=== PATIENT | male | born 1985 | race Caucasian/White ===

== ENCOUNTER 2020-11-29 05:19 | Inpatient (IN) | payer OTHER ==
[2020-11-29 06:25] LABS: BASOPHIL 0.5 % (0-2); EOSINOPHIL 0.9 % (0-5); HCT 36.9 % (42.0-52.0); HGB 11.8 g/dl (13.2-18.0); MCH 26.6 pg (25.0-31.0); MCV 83.3 fL (78.0-100.0); MONOCYTE 9.6 % (0-12); MPV 9.1 fL (6.0-9.5); NEUTROPHIL 78.6 % (41-80); NRBC 0; PLT 340 K/uL (150-400); RBC 4.43 M/uL (4.70-6.00); RDW 13.3 % (11.5-14.0); WBC 13.2 K/uL (4.0-10.5)
[2020-11-29 06:32] LABS: BILIRUBIN NEGATIVE (NEGATIVE); BLOOD NEGATIVE Ery/uL (NEGATIVE); CLARITY CLEAR (CLEAR); COLOR YELLOW (YELLOW); GLUCOSE (U) NORMAL (NORMAL); LEUKOCYTES NEGATIVE Leu/uL (NEGATIVE); NITRITE NEGATIVE (NEGATIVE); PROTEIN NEGATIVE (NEGATIVE); SPECIFIC GRAVITY 1.025 (1.001-1.030); UROBILINOGEN 0.2 mg/dL (0.2-1.0); pH 6.5 (5.0-9.0)
[2020-11-29 07:59] LABS: ALBUMIN 3.3 g/dL (3.4-5.0); BILIRUBIN - TOTAL 0.4 mg/dL (0.2-1.0); CREATININE 0.74 mg/dL (0.67-1.17); GLOBULIN (CALCULATION) 3.7 g/dL; POTASSIUM 4.4 mmol/L (3.5-5.1)
[2020-11-29 08:12] LABS: LACTIC ACID 1.6 mmol/L (0.4-1.9)
[2020-11-29 16:13] LABS: CORONAVIRUS 2019 SARS-COV-2 NEGATIVE (NEGATIVE); INFLUENZA A NAA NEGATIVE (NEGATIVE)
[2020-11-30 06:31] LABS: BASOPHIL 0.1 % (0-2); EOSINOPHIL 0 % (0-5); HCT 33.5 % (42.0-52.0); HGB 10.7 g/dl (13.2-18.0); MCH 26.6 pg (25.0-31.0); MCHC 31.9 g/dL (32.0-36.0); MCV 83.1 fL (78.0-100.0); MONOCYTE 6.4 % (0-12); MPV 9.2 fL (6.0-9.5); NEUTROPHIL 84.9 % (41-80); NRBC 0; PLT 344 K/uL (150-400); RBC 4.03 M/uL (4.70-6.00); RDW 13.4 % (11.5-14.0); WBC 14.1 K/uL (4.0-10.5)
[2020-11-30 06:47] LABS: ALBUMIN 2.6 g/dL (3.4-5.0); BILIRUBIN - TOTAL 0.3 mg/dL (0.2-1.0); BUN/CREAT RATIO (CALC) 24.7 RATIO; CREATININE 0.73 mg/dL (0.67-1.17); GLOBULIN (CALCULATION) 4.3 g/dL; MAGNESIUM 2.4 mg/dL (1.8-2.4); PHOSPHORUS 3.5 mg/dL (2.6-4.7); TOTAL PROTEIN 6.9 g/dL (6.4-8.2)
[2020-11-30] MEDS ORDERED: AUGMENTIN 875-1 EACH PO (14:23)
[2020-11-30] MEDS ORDERED: ACETAMINOPHEN500 M1 PO (14:23)
[2020-11-30] MEDS ORDERED: OXY-IR 5MG5 MG PO (14:23)
[2020-11-30] MEDS ORDERED: MIRALAX17 GM PO (14:23)
[2020-11-30] MEDS ORDERED: IBUPROFEN800 MG PO (14:23)
[2020-11-30] MEDS ORDERED: COLACE100 MG PO (14:23)
[2020-12-01] MEDS ORDERED: LAXATIVE SUPPOS10 MG PR (10:16)
[2020-12-01] MEDS ORDERED: PROMETHAZINE 2525 MG PO (10:16)
== END 2020-11-30 15:15 | disposition home or self-care (01) | DRG 418 ==
LOC: FER 05:19 → FMS 14:21
PROVIDERS: Emergency Medicine; Emergency Medicine Emergency Medical Services; Student in an Organized Health Care Education/Training Program; ADMIT Internal Medicine
PROC: 0FT44ZZ Resection of Gallbladder, Percutaneous Endoscopic Approach (ICD-10-PCS; principal; 2020-11-29 16:30)
PROC: BF131ZZ Fluoroscopy of Gallbladder and Bile Ducts using Low Osmolar Contrast (ICD-10-PCS; 2020-11-29 16:30)
DX: K80.12 Calculus of gallbladder with acute and chronic cholecystitis without obstruction (principal); K82.1 Hydrops of gallbladder; F30.9 Manic episode, unspecified; F11.10 Opioid abuse, uncomplicated; Z20.822 Contact with and (suspected) exposure to COVID-19; R73.03 Prediabetes; F17.210 Nicotine dependence, cigarettes, uncomplicated
CPT/HCPCS: 36415; 71046; 74300; 76705; 80053; 81003; 83605; 83690; 83735; 84100; 84145; 85025; 94010; 96372; C1758; C9113; J1100; J1170; J1644; J1885; J2405; J2543; J2704; J2710; J3010; J3475; J7030; J7120; Q9967; U0002